=== PATIENT | male | born 1965 | race Caucasian/White ===

== ENCOUNTER 2020-01-13 08:07 | Emergency (ER) | payer OTHER, SELFPAY ==
[2020-01-13 08:12] VITALS: BP 122/76; PULSE 76; RESP 20; TEMP 36.6; O2SAT 99
--- NOTE | 2020-01-13 08:25 | W.ED.GENAD ---
Discharge Plan Disposition Patient Disposition: HOME Condition: Stable Discharge Details Clinical Impression: Hearing loss Primary Care Provider: Unknown,Unknown ED Provider: Leslee Stevenson Home Meds and New Rx's Prescriptions: No Action No Known Home Meds RF: 0 Discharge Instructions Instructions: Hearing Loss (ED) Additional Instructions: A prescription for steroids was called into [facility] in [place]. Call the pharmacy today to confirm when the prescription is ready. Take the steroids until finished. 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 Follow-up with the ear nose and throat doctor at the [place] for further evaluation. Return to the emergency department with any worsening or new concerning symptoms such as headaches, dizziness, fever. Discharge Data Discharge Date/Time-TO BE ENTERED AT DEPARTURE: 01/13/20 09:58 Discharge Physician: Leslee Stevenson Medical Decision Making 54yo M w/ a h/o chronic bilateral hearing loss since the 90s presents for worsening of L ear hearing loss since awakening this morning. Vitals within normal limits. Patient appears nontoxic. He has minimal wax in the right ear canal but no wax in the left ear canal. He does admit to some minimal left-sided jaw pain and pulsating in left ear. Discussed with patient that as he has had chronic hearing loss but this is slightly worse this morning with some minimal discomfort, consider possible acute viral process. Doubt an acute central neurologic process such as a tumor or mass as patient has had chronic hearing loss for more than 20 years some discomfort this morning, but discussed obtaining a CT head for further evaluation. Patient would rather treat with steroids at this time and hold on any imaging. A prescription for prednisone 20 mg, 3 tabs daily x 2 days, 2 tabs daily x 2 days, and 1 tab daily x 2 days, #12 called into [facility] in [place]. Patient advised to follow-up with audiology for hearing test and with ENT at the [place]. Advised to follow up with the primary care doctor for re-evaluation. Usual and customary return precautions given prior to discharge. Medical Records Medical records reviewed: Yes I reviewed the patient's medical records. HPI General Mode of arrival: ambulatory. Date/Time Provider Initiated Documentation: 01/13/20 08:24. Limitations to Documentation: no limitations. Information obtained by: patient. HPI Narrative: Patient is a 54-year-old male with a history of chronic hearing loss and tinnitus who presents with worsening of left-sided hearing loss since awakening this morning. Patient states he was first diagnosed with hearing loss in the s and states he has had ongoing issues with tinnitus and hearing loss in both ears for many years. He states 2 months ago he noticed some worsening of hearing loss in the left ear but states his improved until this morning. He states he was last seen by ENT at the [place] 2 months ago for his hearing loss and was referred to audiology for hearing test but he did not hear back from them and since his symptoms improved he did not follow-up. 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 He denies any recent injury, fever, headache, dizziness, nausea, vomiting, neck pain, ear drainage. He does admit to a pulsating sensation in his left ear as well as mild left jaw pain this morning. Related Data Home Medications Medication Instructions Recorded Confirmed Unknown [No Known Home Meds] 01/13/20 01/13/20 Allergies Allergy/AdvReac Type Severity Reaction Status Date / Time No Known Allergies Allergy Unverified 01/13/20 08:17 General Stated Complaint: EarProblem HAO: 4 Review of Systems All systems reviewed & are unremarkable except as noted in HPI and below Constitutional Constitutional: Reports as per HPI, Denies chills and Denies fever(s) Eyes Eyes: Denies blurry vision ENT Ears, Nose, Mouth, and Throat: Denies dizziness, Reports hearing loss, Reports tinnitus, Denies sore throat and Denies throat swelling Cardiovascular Cardiovascular: Denies chest pain and Denies dyspnea Respiratory Respiratory: Denies cough and Denies dyspnea Gastrointestinal Gastrointestinal: Denies abdominal pain, Denies diarrhea and Denies vomiting Genitourinary Genitourinary: Denies hematuria and Denies dysuria Musculoskeletal Musculoskeletal: Denies back pain and Denies numbness Integumentary/Breasts Skin/Breast: Denies lesions and Denies rash Neurologic Neurologic: Denies dizziness, Denies localized weakness and Denies numbness Allergic/Immunologic Allergic/Immunologic: Denies throat swelling [facility] Medical History (Updated 01/13/20 @ 09:31 by Leslee Stevenson DO) DVT (deep venous thrombosis) Hearing loss Surgical History (Updated 01/13/20 @ 09:31 by Leslee Stevenson DO) No significant past surgical history Social History Smoking/Tobacco Use Status: Never Smoking risk assessment performed?: Yes Alcohol Intake: current Alcohol Intake frequency: holidays/special occasions only Alcohol type: beer and wine Drug use: Never Substance use type: does not use Do you feel safe at home: Yes Do you feel safe in your relationship?: Yes Exam Const General: cooperative, healthy appearing and no acute distress HENMT Head: normal to inspection Ears: hearing grossly normal bilaterally, external ears normal, TM's normal bilaterally and EAC's normal General nose exam: external nose normal Mouth: oral mucosae normal Teeth and gingiva: dentition normal Throat: posterior oropharynx normal Eyes General: appearance normal, both eyes and all related structures Neck Neck: normal visual inspection, full ROM, no lymphadenopathy, no meningeal signs, trachea midline, supple, anterior neck swelling and No submandibular swelling Resp Effort & Inspection: normal respiratory effort and able to speak in complete sentences Cardio Rate: regular rate Skin General skin exam: no rashes or lesions noted Neuro General: patient alert, patient awake and patient oriented x3 Motor: muscle tone normal throughout Extrem General: normal to inspection and full ROM Psych Appearance: grossly normal Affect: normal affect Course Vital Signs Vital signs: Vital Signs Temperature 97.9 F 01/13/20 08:12 Pulse 76 01/13/20 08:12 Respiratory Rate 20 01/13/20 08:12 Blood Pressure 122/76 01/13/20 08:12 Pulse Oximetry 99 01/13/20 08:12 Temperature 97.9 F 01/13/20 08:12 Temperature Source Skin 01/13/20 08:12 Pulse 76 01/13/20 08:12 Respiratory Rate 20 01/13/20 08:12 Respiratory Effort Non-Labored 01/13/20 08:18 Blood Pressure 122/76 01/13/20 08:12 Blood Pressure Position Sitting 01/13/20 08:12 Pulse Oximetry 99 01/13/20 08:12 Oxygen Delivery Method Room Air 01/13/20 08:12 Oxygen Flow Rate 0 01/13/20 08:12 Pain Level 0 01/13/20 08:12
== END 2020-01-13 09:58 | disposition home or self-care (01) ==
PROVIDERS: Emergency Provider Physician Assistant
DX: H91.92 Unspecified hearing loss, left ear (principal); R68.84 Jaw pain; H93.19 Tinnitus, unspecified ear; Z97.4 Presence of external hearing-aid
CPT/HCPCS: 99283